=== PATIENT | female | born 2000 | race Caucasian/White ===

== ENCOUNTER 2021-04-11 22:15 | Emergency (ER) | payer MEDICAID ==
[~2021-04-11] VITALS: Ht 160 cm; Wt 85.6 kg
[2021-04-11 23:14] VITALS: BP 121/83
[2021-04-11] MEDS ORDERED: TRAMADOL 50MG TABLET PO ONE (23:30)
[2021-04-11] MEDS ORDERED: ACETAMINOPHEN 325MG TABLET PO ONE (23:30)
[2021-04-11] MEDS ORDERED: BACITRACIN ZINC OINT UDPKT TOP ONE (23:45)
[2021-04-12] MEDS ORDERED: NAPR-681 MT (02:01)
== END 2021-04-12 02:43 | disposition home or self-care (01) ==
LOC: ER 22:15
DX: S50.811A Abrasion of right forearm, initial encounter (principal); R07.81 Pleurodynia; M25.511 Pain in right shoulder; R51.9 Headache, unspecified; W22.12XA Striking against or struck by front passenger side automobile airbag, initial encounter; V49.59XA Passenger injured in collision with other motor vehicles in traffic accident, initial encounter; Y93.89 Activity, other specified; Y92.488 Other paved roadways as the place of occurrence of the external cause
CPT/HCPCS: 71101; 73030; 81025; 99284